=== PATIENT | female | born 1950 | race Caucasian/White ===

== ENCOUNTER → 2017-09-08 | Outpatient (CLI) | payer OTHER ==
[~2017-09-08] MED LIST: AMLO5TAB2 PO; ASCO500T8 PO; ASPI-650 PO; ASPI500T10 PO; BOSW1POW PO; CALC-151 PO; GLUC-120 PO; HYDR1TAB12 PO; LYSI500T3 PO; MAGN250T9 PO; MONT10TA6 PO; OLME1TAB25 PO; OMEP20CA9 PO; POTA99TA14 PO; SIMV40TA3 PO; SITA1TBM4 PO; TRAM50TA2 PO; [UNRECOGNIZED DRUG - OTHER] PO; [UNRECOGNIZED DRUG - OTHER] PO
== END | disposition home or self-care (01) ==
LOC: CFH 13:16
PROVIDERS: ATTEND Family Medicine
DX: I08.2 Rheumatic disorders of both aortic and tricuspid valves (principal); E11.9 Type 2 diabetes mellitus without complications; E78.5 Hyperlipidemia, unspecified; I10 Essential (primary) hypertension
CPT/HCPCS: 93306

== ENCOUNTER → 2018-07-08 | Outpatient (CLI) | payer OTHER ==
[~2018-07-08] MED LIST changes: -AMLO5TAB2 PO; +AMLO5TAB7 PO
== END | disposition home or self-care (01) ==
LOC: CFH 10:45
PROVIDERS: ATTEND Family Medicine
DX: Z12.31 Encounter for screening mammogram for malignant neoplasm of breast (principal); Z13.820 Encounter for screening for osteoporosis; N95.9 Unspecified menopausal and perimenopausal disorder
CPT/HCPCS: 77080; 77067

== ENCOUNTER → 2019-12-05 | Outpatient (CLI) | payer MEDICARE ==
[~2019-12-05] MED LIST changes: +AMLO-150 PO; -AMLO5TAB7 PO; -HYDR1TAB12 PO; +HYDR1TAB13 PO; +SIMV40TA20 PO; -SIMV40TA3 PO
== END | disposition home or self-care (01) ==
LOC: CFH 10:49
PROVIDERS: ATTEND Nurse Practitioner
DX: Z12.31 Encounter for screening mammogram for malignant neoplasm of breast (principal)
CPT/HCPCS: 77063; 77067

== ENCOUNTER 2020-12-30 10:28 | Outpatient (CLI) | payer MEDICARE ==
[~2020-12-30 10:28] MED LIST changes: +ASPI-1026 PO; -ASPI-650 PO; -POTA99TA14 PO; +POTA99TA19 PO
== END 2020-12-30 23:59 | disposition home or self-care (01) ==
LOC: CFH 10:28
PROVIDERS: ATTEND Nurse Practitioner
DX: Z12.31 Encounter for screening mammogram for malignant neoplasm of breast (principal)
CPT/HCPCS: 77063; 77067